=== PATIENT | female | born 1955 | race Hispanic/Latino ===

== ENCOUNTER 2022-12-31 09:35 | Outpatient (CLI) | payer OTHER ==
[2022-12-31 10:34] LABS: Mean Corpuscular HGB CONC 32.6 g/dL (32.0-36.0); Mean Corpuscular Hemoglobin 29.1 pg (27.0-33.0); Mean Corpuscular Volume 89.5 fl (81.6-98.3); Mean Platelet Volume 9.7 fl (7.4-10.4); Platelet Count 249 10x3/uL (150-450); RBC Distribution Width 13.7 % (11.5-14.5); Red Blood Cell (RBC) Count 4.46 10x6/uL (3.90-5.03); White Blood Cell (WBC) Count 7.4 10x3/uL (3.5-10.5)
[2022-12-31 10:44] LABS: Anion Gap 14 mmol/L (10-20); BUN (Urea Nitrogen) 12 mg/dL (9.8-20.1); Calc. Creatinine Clearance 0 mL/min (70-130); Calcium 9.6 mg/dL (7.8-10.44); Carbon Dioxide 25 mmol/L (23-31); Chloride 105 mmol/L (98-107); Estimated GFR 85; Glucose 212 mg/dL (80-115); Potassium 4.3 mmol/L (3.5-5.1); Sodium 140 mmol/L (136-145)
== END 2022-12-31 09:36 | disposition home or self-care (01) ==
LOC: LABBT 09:35
PROVIDERS: ATTEND Thoracic Surgery (Cardiothoracic Vascular Surgery)
DX: Z01.812 Encounter for preprocedural laboratory examination (principal); I65.23 Occlusion and stenosis of bilateral carotid arteries
CPT/HCPCS: 80048; 85027; 93005

== ENCOUNTER 2022-12-31 10:00 | Inpatient (IN) | payer OTHER ==
[2023-01-01 08:57] LABS: SARS-CoV-2 NAA Rapid Test Not Detected (NotDetected)
[2023-01-01] MEDS ORDERED: Bupivacaine/Epinephrine 0.25% 30 ML VIAL ONE (09:35)
[2023-01-01] MEDS ORDERED: Protamine Sulfate 50 MG/5 ML VIAL ONE (09:35)
[2023-01-01] MEDS ORDERED: Heparin 5,000 UNITS/ML VIAL ONE (09:35)
[2023-01-01] MEDS ORDERED: Lidocaine 1% PF 5 ML VIAL ONE ×2 (09:38→09:51)
[2023-01-01] MEDS ORDERED: CEFAZOLIN 2 GM VIAL ONE (09:43)
[2023-01-01] MEDS ORDERED: Sodium Chloride 0.9% 100 ML ONE (09:43)
[2023-01-01] MEDS ORDERED: fentaNYL PF 100 MCG/2 ML SYRINGE ONE (09:44)
[2023-01-01] MEDS ORDERED: Midazolam HCl 2 mg/2 ml Vial ONE (09:50)
[2023-01-01] MEDS ORDERED: Fentanyl 100 MCG/2 ML VIAL ONE ×2 (09:50→12:44)
[2023-01-01] MEDS ORDERED: Rocuronium Bromide 10 MG/ML (10ML VIAL) ONE (09:51)
[2023-01-01] MEDS ORDERED: Ondansetron PF 4 MG/2 ML Vial ONE (09:51)
[2023-01-01] MEDS ORDERED: PROPOFOL 200 MG/20 ML VIAL ONE (09:51)
[2023-01-01] MEDS ORDERED: Dexamethasone 20 MG/5 ML VIAL ONE (09:51)
[2023-01-01] MEDS ORDERED: Esmolol 100 MG/10 ML VIAL ONE (09:51)
[2023-01-01] MEDS ORDERED: NEOSTIGMINE 3 MG/3 ML SYR 3 MG/3 ML SYRINGE ONE (09:51)
[2023-01-01] MEDS ORDERED: Glycopyrrolate 0.2 MG/ML 5 ML SYRINGE ONE (09:51)
[2023-01-01] MEDS ORDERED: Promethazine HCl 25 MG/ML VIAL IM PRN (12:18)
[2023-01-01] MEDS ORDERED: Ondansetron HCl/PF 4 MG/2 ML Vial IVP PRN (12:18)
[2023-01-01] MEDS ORDERED: Labetalol HCl 100 MG/20 ML VIAL SLOW IVP PRN (12:19)
[2023-01-01] MEDS ORDERED: Labetalol HCl 100 MG/20 ML VIAL ONE (12:26)
[2023-01-01] MEDS ORDERED: Fentanyl 100 MCG/2 ML VIAL SLOW IVP PRN ×2 (12:27)
[2023-01-01] MEDS ORDERED: Dextrose 5% in Water 1,000 ML IV PRN (12:27)
[2023-01-01] MEDS ORDERED: Phenylephrine 40 MG in Sodium Chloride 0.9% 250 ML 250 ML IVPB PRN (12:27)
[2023-01-01] MEDS ORDERED: Ipratropium/Albuterol 3 ML NEB NEB PRN (12:27)
[2023-01-01] MEDS ORDERED: Ondansetron PF 4 MG/2 ML Vial IVP PRN (12:27)
[2023-01-01] MEDS ORDERED: Acetaminophen 325 MG TAB PO PRN (12:27)
[2023-01-01] MEDS ORDERED: Dextrose 50% Abboject 50 ML SYRINGE SLOW IVP PRN (12:27)
[2023-01-01] MEDS ORDERED: niCARdipine 40MG In NaCl 40 MG/200 ML BAG IVPB SCH (12:30)
[2023-01-01] MEDS ORDERED: SUGAMMADEX SODIUM 200 MG/2 ML VIAL ONE (12:31)
[2023-01-01] MEDS ORDERED: niCARdipine 50 MG in Sodium Chloride 0.9% 250 ML 230 ML IV SCH (12:45)
[2023-01-01] MEDS: Sodium Chloride 0.9% 1,000 ML IV SCH ×2 (14:24→22:30)
[2023-01-01] MEDS: CEFAZOLIN 2 GM in Sodium Chloride 0.9% 100 ML IVPB SCH ×2 (14:26→21:41)
[2023-01-01] MEDS ORDERED: FLU VACC QS2022-23(65YR UP)/PF 240 MCG/0.7 ML SYRINGE IM ONE (15:00)
[2023-01-01] MEDS: metFORMIN 500 MG TAB PO SCH (16:26)
[2023-01-01] MEDS: traMADol HCl 50 MG TAB PO PRN (17:22)
[2023-01-01] MEDS: HumaLOG 300 UNITS/3 ML VIAL SC PRN ×2 (18:33→21:51)
[2023-01-01] MEDS ORDERED: Pramipexole Di-HCl 0.125 MG TAB PO SCH (21:00)
[2023-01-02 05:25] VITALS: BMI 36.1
[2023-01-02] MEDS: CEFAZOLIN 2 GM in Sodium Chloride 0.9% 100 ML IVPB SCH (05:59)
[2023-01-02] MEDS ORDERED: Levothyroxine Sodium 88 MCG TAB PO SCH (06:00)
[2023-01-02] MEDS: HumaLOG 300 UNITS/3 ML VIAL SC PRN (06:04)
[2023-01-02] MEDS: metFORMIN 500 MG TAB PO SCH (07:57)
[2023-01-02 08:00] VITALS: BP 151/85
[2023-01-02] MEDS: traMADol HCl 50 MG TAB PO PRN (08:27)
[2023-01-02 08:51] VITALS: TEMP 98.4
[2023-01-02] MEDS ORDERED: Aspirin Chewable 81 MG TAB PO SCH (09:00)
[2023-01-02] MEDS ORDERED: glipiZIDE 5 MG TAB PO SCH (09:00)
[2023-01-02] MEDS ORDERED: Lisinopril 20 MG TAB PO SCH (09:00)
[2023-01-02] MEDS ORDERED: Atorvastatin Calcium 20 MG TAB PO SCH (09:00)
== END 2023-01-02 08:55 | disposition home or self-care (01) | DRG 39 ==
LOC: SURG A 01-01 07:36 → CCU 01-01 13:39
PROVIDERS: ADMIT Thoracic Surgery (Cardiothoracic Vascular Surgery); ATTEND Thoracic Surgery (Cardiothoracic Vascular Surgery)
PROC: 03CL0ZZ Extirpation of Matter from Left Internal Carotid Artery, Open Approach (ICD-10-PCS; principal; 2023-01-01)
PROC: 03UL0KZ Supplement Left Internal Carotid Artery with Nonautologous Tissue Substitute, Open Approach (ICD-10-PCS; 2023-01-01)
DX: I65.23 Occlusion and stenosis of bilateral carotid arteries (principal); Z20.822 Contact with and (suspected) exposure to COVID-19; I25.10 Atherosclerotic heart disease of native coronary artery without angina pectoris; E78.5 Hyperlipidemia, unspecified; I10 Essential (primary) hypertension; K21.9 Gastro-esophageal reflux disease without esophagitis; E11.9 Type 2 diabetes mellitus without complications; E03.9 Hypothyroidism, unspecified; E66.9 Obesity, unspecified; Z68.36 Body mass index [BMI] 36.0-36.9, adult; Z79.899 Other long term (current) drug therapy; Z79.84 Long term (current) use of oral hypoglycemic drugs; Z79.02 Long term (current) use of antithrombotics/antiplatelets; Z79.890 Hormone replacement therapy; Z79.82 Long term (current) use of aspirin; Z98.890 Other specified postprocedural states; Z80.9 Family history of malignant neoplasm, unspecified
CPT/HCPCS: 36416; 80048; 85027; 90471; 90662; 93005; C1768; G0008; J1100; J1642; J1644; J1815; J2250; J2405; J2704; J2720; J3010; J3490; J7050; U0002

== ENCOUNTER 2023-02-24 19:55 | Emergency (ER) | payer MEDICARE, OTHER ==
[2023-02-24 20:48] LABS: #Eosinphils 0.1 thou/uL (0.0-0.7); #Lymphocytes 2.9 thou/uL (1.20-3.40); #Monocytes 0.6 thou/uL (0.11-0.59); #Neutrophils 4.2 thou/uL (1.40-6.50); %Basophils 0.3 % (0.0-1.0); %Eosinophils 1.1 % (0.0-10.0); %Lymphocytes 37.1 % (21.0-51.0); %Neutrophils 54.5 % (42.0-75.0); Hemoglobin 13.2 g/dL (12.0-16.0); Large Platelets SLIGHT; MDiff Complete? YES; Mean Corpuscular HGB CONC 35.5 g/dL (32.0-36.0); Mean Corpuscular Hemoglobin 30.9 pg (27.0-31.0); Mean Corpuscular Volume 87.1 fl (78.0-98.0); Platelet Count 75 10x3/uL (130-400); Platelet Morphology Comment Appears Decreased; RBC Distribution Width 12.7 % (11.5-14.5); Red Blood Cell (RBC) Count 4.27 mill/uL (4.20-5.40); White Blood Cell (WBC) Count 7.7 10x3/uL (4.8-10.8)
[2023-02-24 20:49] LABS: ALT (SGPT) 26 U/L (8-55); AST (SGOT) 18 U/L (5-34); Albumin 4.3 g/dL (3.4-4.8); Alkaline Phosphatase 91 U/L (40-110); Anion Gap 17 mmol/L (10-20); BUN (Urea Nitrogen) 7 mg/dL (9.8-20.1); Bilirubin, Total 0.6 mg/dL (0.2-1.2); Calc. Creatinine Clearance 0 mL/min (70-130); Calcium 9.8 mg/dL (7.8-10.44); Carbon Dioxide 24 mmol/L (23-31); Chloride 103 mmol/L (98-107); Estimated GFR 90; Globulin 2.5 g/dL (2.4-3.5); Glucose 157 mg/dL (80-115); Potassium 3.7 mmol/L (3.5-5.1); Protein, Total 6.8 g/dL (5.8-8.1); Sodium 140 mmol/L (136-145)
== END 2023-02-24 21:45 | disposition home or self-care (01) ==
LOC: ERS 19:55
DX: R07.89 Other chest pain (principal); I10 Essential (primary) hypertension; E78.5 Hyperlipidemia, unspecified; E11.9 Type 2 diabetes mellitus without complications; E03.9 Hypothyroidism, unspecified
CPT/HCPCS: 36415; 71045; 80053; 83605; 83690; 83880; 84484; 85025; 93005